=== PATIENT | male | born 1990 | race Caucasian/White ===

== ENCOUNTER → 2017-02-02 | Outpatient (CLI) | payer OTHER | LOC: CARD 08:30 | PROVIDERS: ATTEND Internal Medicine Interventional Cardiology | DX: R07.9 Chest pain, unspecified (principal) | CPT/HCPCS: 93306 ==

== ENCOUNTER → 2017-02-23 | Outpatient (CLI) | payer OTHER ==
--- NOTE | 2017-02-24 09:42 | STRESS TEST ---
PROCEDURE PHYSICIAN: ANGI PANTOJA DATE OF PROCEDURE: 02/23/2017 EXERCISE STRESS TEST REPORT: PRIMARY PHYSICIAN: Dr. Aparicio. DIAGNOSES: Chest pain. PROCEDURE DETAILS: The patient was brought to the stress lab after informed consent was taken. Exercise stress test was performed according to the Donnie protocol. Initial EKG showed sinus rhythm with no ST-T wave abnormalities. The patient exercised for 15 minutes and 9 seconds and achieved 15.1 metabolic equivalents. The patient achieved 169 bpm which is 87% of maximum predicted heart rate response. Maximum blood pressure was 183/[address]-T wave abnormalities were seen. The patient did not complain of any chest pain and did not have any arrhythmias. CONCLUSION: 1. Normal exercise stress test. 2. Excellent functional capacity. 3. Hypertensive response to exercise. Job ID: [id number] Dictated Date: 02/23/2017 16:16:17 Dog Walker Date: 02/24/2017 09:37:21 / liat
== END ==
LOC: CARD 10:47
PROVIDERS: ATTEND Internal Medicine Interventional Cardiology
DX: R07.9 Chest pain, unspecified (principal)
CPT/HCPCS: 93017

== ENCOUNTER → 2018-04-11 | Outpatient (CLI) | payer BC, OTHER ==
--- NOTE | 2018-04-11 09:04 | Diagnostic Imaging Report ---
PROCEDURE: US Gallbladder. TECHNIQUE: Multiple real-time grayscale images were obtained over the right upper quadrant in various projections. INDICATION: Right upper quadrant pain. FINDINGS: The liver is normal in size at 16.1 cm. No discrete liver mass is identified. The main portal vein is patent and shows normal direction of flow. The gallbladder is without stones or sludge. No wall thickening or pericholecystic fluid is seen. There is no biliary ductal dilatation. The pancreas is poorly visualized and obscured by bowel gas. Right kidney is also somewhat difficult to visualize but grossly unremarkable. No hydronephrosis is seen. There is no ascites. IMPRESSION: No evidence of cholelithiasis or acute cholecystitis. Dictated by: Dictated on workstation # [id number]
== END ==
LOC: RAD 08:03
PROVIDERS: ATTEND Family Medicine
DX: R10.11 Right upper quadrant pain (principal)
CPT/HCPCS: 76705

== ENCOUNTER → 2018-04-16 | Outpatient (CLI) | payer BC ==
[~2018-04-16] MED LIST: CATHETER FLUSH 10 ML SYR IV PRN
--- NOTE | 2018-04-16 16:56 | Diagnostic Imaging Report ---
Indication: Right upper quadrant pain. The patient was measured 5.2 mCi technetium 99m Choletec and imaging over the abdomen was performed. After one hour, the patient ingested 8 ounces of Ensure and gallbladder ejection fraction was calculated. There is homogeneous uptake of activity by the liver. Prompt excretion of activity into the gallbladder is identified. Normal passage of activity into the small bowel. Gallbladder ejection fraction is normal at 55%. Impression: Normal HIDA scan and gallbladder ejection fraction. Dictated by: Dictated on workstation # [id number]
== END ==
LOC: CARD 11:19
PROVIDERS: ATTEND Family Medicine
DX: R10.11 Right upper quadrant pain (principal)
CPT/HCPCS: 78227